=== PATIENT | male | born 1970 ===

== ENCOUNTER 2017-10-22 00:17 | Emergency (ER) | payer SELFPAY ==
[2017-10-22 00:52] VITALS: TEMP 98.5
--- NOTE | 2017-10-22 01:07 | ED PDOC ---
HPI: General Adult Time Seen by Provider: 10/22/17 00:43 Chief Complaint (Nursing): Weakness/Neurological Deficit Chief Complaint (Provider): Left sided arm and leg cramping History Per: Patient History/Exam Limitations: no limitations Onset/Duration Of Symptoms: Hrs Have you had recent travel within the past 21 days to any of the following countries: [place], [place], [place] or [place]?: No Current Symptoms Are (Timing): Still Present Additional History Per: Patient Additional Complaint(s): 47yo male, with history of colon cancer and colon resection, comes to ER with complaints of "cramps" in his left leg and arm. Patient states he was watching TV while the symptoms started and report they have been intermittent since yesterday afternoon. He reports "neck cramping" as well and was concerned, prompting ER visit. He denies any headache, weakness, numbness, chest pain, shortness of breath, and offers no other complaints. Past Medical History Reviewed: Historical Data, Nursing Documentation, Vital Signs Vital Signs: Last Vital Signs Temp 98.5 F 10/22/17 00:48 Pulse 77 10/22/17 03:39 Resp 19 10/22/17 03:39 BP 145/80 10/22/17 02:05 Pulse Ox 100 10/22/17 03:39 - Medical History PMH: No Chronic Diseases - Surgical History Surgical History: No Surg Hx - Family History Family History: States: Unknown Family Hx - Immunization History Hx Tetanus Toxoid Vaccination: Yes Hx Influenza Vaccination: No Hx Pneumococcal Vaccination: No - Home Medications Home Medications: Ambulatory Orders Medication Instructions Recorded Naproxen [Naprosyn] 1 tab PO BID PRN #20 tab 05/24/15 Penicillin VK [Penicillin VK Tab] 2 tab PO BID #28 tab 05/24/15 - Allergies Allergies/Adverse Reactions: Allergies Allergy/AdvReac Type Severity Reaction Status Date / Time No Known Allergies Allergy Verified 05/24/15 13:16 Review of Systems ROS Statement: Except As Marked, All Systems Reviewed And Found Negative Constitutional: Negative for: Fever, Chills Eyes: Negative for: Vision Change Cardiovascular: Negative for: Chest Pain Respiratory: Negative for: Shortness of Breath Gastrointestinal: Negative for: Vomiting Musculoskeletal: Positive for: Other (cramping in left neck, arm and leg) Neurological: Negative for: Weakness, Numbness, Headache Physical Exam - Reviewed Nursing Documentation Reviewed: Yes Vital Signs Reviewed: Yes - Physical Exam Appears: Positive for: Non-toxic, No Acute Distress Head Exam: Positive for: ATRAUMATIC, NORMAL INSPECTION, NORMOCEPHALIC Skin: Positive for: Normal Color, Warm, DRY Eye Exam: Positive for: EOMI, Normal appearance, PERRL ENT: Positive for: Normal ENT Inspection Neck: Positive for: Normal, Painless ROM Cardiovascular/Chest: Positive for: Regular Rate, Rhythm Respiratory: Positive for: CNT, Normal Breath Sounds Pulses-Radial (L): 2+ Pulses-Radial (R): 2+ Gastrointestinal/Abdominal: Positive for: Normal Exam, Soft. Negative for: Tenderness Back: Positive for: Normal Inspection Extremity: Positive for: Normal ROM. Negative for: Deformity Neurologic/Psych: Positive for: Alert, ore grader II-XII (intact), Oriented, Cerebellar Tests (normal), Gait (steady). Negative for: Motor/Sensory Deficits , Aphasia, Facial Droop - Laboratory Results Result Diagrams: 10/22/17 01:00 10/22/17 01:00 - ECG ECG: Positive for: Interpreted By Me, Viewed By Me ECG Rhythm: Positive for: Normal QRS, Normal ST Segment, Sinus Rhythm Rate: 83 O2 Sat by Pulse Oximetry: 98 (RA) Pulse Ox Interpretation: Normal - Progress Re-evaluation Time: 03:48 Condition: Re-examined, Improved Medical Decision Making Medical Decision Making: Impression: Left leg and left arm cramps Differential: Muscle spasm, neuropathy, electrolyte abnormalities, dehydration associated with alcohol use; less likely TIA or CVA Plan: * CT Head w/o contrast * Labs * EKG * Flexeril 10mg PO * Toradol 30mg IVP 0250 CT Head FINDINGS: Brain: No intracranial hemorrhage. No evidence of evolved territorial infarct or cerebral edema. No mass effect or midline shift. Ventricles: Unremarkable. No ventriculomegaly. Bones/joints: No acute osseous abnormality. Soft tissues: No soft tissue swelling. Sinuses: Visualized paranasal sinuses are clear. Mastoid air cells: Mastoid air cells are well-aerated. IMPRESSION: No acute intracranial findings. Scribe Attestation: Documented by Sheila Padilla, acting as a scribe for Nick Moore MD. Provider Scribe Attestation: All medical record entries made by the Scribe were at my direction and personally dictated by me. I have reviewed the chart and agree that the record accurately reflects my personal performance of the history, physical exam, medical decision making, and the department course for this patient. I have also personally directed, reviewed, and agree with the discharge instructions and disposition. Disposition - Clinical Impression Clinical Impression: Muscle cramping, Cocaine abuse, Marijuana abuse - Patient ED Disposition Is Patient to be Admitted: No Doctor Will See Patient In The: Office Counseled Patient/Family Regarding: Studies Performed, Diagnosis, Need For Followup - Disposition Referrals: [facility] [Outside] Disposition: Routine/Home Disposition Time: 03:48 Condition: GOOD Additional Instructions: Follow up with your PCP in 2-3 days. Return for worsening. Avoid drug use. Instructions: Drug Abuse and Drug Addiction (DC)
[2017-10-22 01:22] LABS: BASO % 0.5 % (0.0-2.0); EOS # 0.1 K/uL (0.0-0.7); EOS % 0.8 % (0.0-4.0); HEMOGLOBIN 16.4 g/dL (12.0-18.0); LYMPH # 1.2 K/uL (1.0-4.3); LYMPH % 15.9 % (20.0-40.0); MEAN CELL VOLUME 93.6 fl (80.0-94.0); MEAN CORPUSCULAR HEMOGLOBIN 32.5 pg (27.0-31.0); MEAN CORPUSCULAR HGB CONC 34.7 g/dL (33.0-37.0); MEAN PLATELET VOLUME 10.2 fl (7.2-11.7); MONO # 1.7 K/uL (0.0-0.8); MONO % 22.6 % (0.0-10.0); NEUT # 4.5 K/uL (1.8-7.0); NEUT % 60.2 % (50.0-75.0); PLATELET COUNT 166 K/uL (130-400); RBC 5.03 Mil/uL (4.40-5.90); RED CELL DISTRIBUTION WIDTH 13.7 % (11.5-14.5); WHITE BLOOD COUNT 7.5 K/uL (4.8-10.8)
[2017-10-22 01:31] LABS: BLOOD UREA NITROGEN 5 mg/dl (9-20); CALCIUM 9.6 mg/dL (8.4-10.2); GFR AFRICAN-AMERICAN > 60; GFR NON-AFRICAN AMERICAN > 60
[2017-10-22 02:26] LABS: BARBITURATES, UR NEGATIVE (NEGATIVE); BENZODIAZEPINES, UR NEGATIVE (NEGATIVE); OPIATES, UR NEGATIVE (NEGATIVE); PHENCYCLIDINE, UR NEGATIVE (NEGATIVE)
[2017-10-22 03:09] LABS: BANDS 1 % (0-2); LYMPHOCYTE 12 % (20-50); MONOCYTE 12 % (0-10); NEUTROPHIL 75 % (42-75); PLATELET ESTIMATE NORMAL (NORMAL); TOTAL CELLS COUNTED 100
[2017-10-22 03:10] LABS: ANISOCYTOSIS SLIGHT
[2017-10-22 04:24] VITALS: BP 126/78; PULSE 77; RESP 16; O2SAT 100
--- NOTE | 2017-10-22 08:23 | CARD ---
APPROVED REPORT Date of service: 10/22/2017 EKG Measurement Heart [id number] <Conclusion> Normal sinus rhythm prolonged QT Abnormal ECG
--- NOTE | 2017-10-22 10:20 | CT ---
Date of service: 10/22/2017 PROCEDURE: CT HEAD WITHOUT CONTRAST. HISTORY: left sided cramping COMPARISON: None available. TECHNIQUE: Axial computed tomography images were obtained through the head/brain without intravenous contrast. Radiation dose: Total exam DLP = 831.43 mGy-cm. This CT exam was performed using one or more of the following dose reduction techniques: Automated exposure control, adjustment of the mA and/or kV according to patient size, and/or use of iterative reconstruction technique. FINDINGS: HEMORRHAGE: No acute parenchymal, subarachnoid or extra-axial hemorrhage. BRAIN: No evidence of large infarct. Questionable minimal chronic periventricular white matter ischemic changes. No obvious parenchymal nor extra-axial mass or collection seen on this noncontrast study. Very mild generalized volume loss. VENTRICLES: Unremarkable. No hydrocephalus. CALVARIUM: Unremarkable. PARANASAL SINUSES: Unremarkable as visualized. No significant inflammatory changes. MASTOID AIR CELLS: Unremarkable as visualized. No inflammatory changes. OTHER FINDINGS: None. IMPRESSION: No acute intracranial hemorrhage. Questionable minimal chronic periventricular white matter ischemic changes. Mild generalized volume loss.
== END 2017-10-22 04:47 | disposition home or self-care (01) ==
LOC: H.ER 00:17
DX: R25.2 Cramp and spasm (principal); F14.10 Cocaine abuse, uncomplicated; F12.10 Cannabis abuse, uncomplicated; Z85.038 Personal history of other malignant neoplasm of large intestine
CPT/HCPCS: 70450; 80048; 82948; 85025; 93005; 96374; 99285; G0480; J1885